=== PATIENT | female | born 1955 | race Two or more races ===

== ENCOUNTER 2018-04-01 02:17 | Inpatient (IN) | payer SELFPAY ==
[~2018-04-01] VITALS: Ht 152.4 cm; Wt 84.8 kg
[2018-04-01 02:25] VITALS: Ht 152.4 cm; Wt 84.8 kg
[2018-04-01 03:24] LABS: BASOPHIL % 0.2 % (0-2); PLATELET COUNT 184 x10^3mcL (130-400)
[2018-04-01 03:37] LABS: CALCIUM 9.1 mg/dL (8.5-10.1); CARBON DIOXIDE 28.3 mmol/L (21-32); CREATININE SERUM 1.3 mg/dL (0.6-1.0); POTASSIUM SERUM 4.3 mmol/L (3.5-5.1)
[2018-04-01 03:42] LABS: ALBUMIN 3.7 g/dL (3.4-5.0); BILIRUBIN TOTAL 0.4 mg/dL (0.20-1.00); TOTAL PROTEIN, SERUM 7.3 g/dL (6.4-8.2)
[2018-04-01 04:03] LABS: UA SPECIFIC GRAVITY 1.015 (1.005-1.035); microscopic required? YES; urine erythrocyte NEGATIVE (NEGATIVE)
[2018-04-01] MEDS ORDERED: METFORMIN HCL850 MG (09:17)
[2018-04-01 12:26] VITALS: BP 157/74
[2018-04-01 16:05] LABS: CHOLESTEROL/HDL RATIO 4.2; MAGNESIUM 1.7 mg/dL (1.8-2.4); PHOSPHOROUS 4.2 mg/dL (2.5-4.9)
[2018-04-01 16:30] LABS: T3 TOTAL 1.12 ng/mL
[2018-04-01 16:37] LABS: FREE T4 1.03 ng/dL (0.76-1.46); FREE THYROXINE INDEX 2.4 ug/dL (1.4-4.5); T4(THYROXINE) 6.7 ug/dL (4.7-13.3)
[2018-04-01 16:38] VITALS: BP 114/78
[2018-04-01 17:36] LABS: AMPHETAMINE QUAL UR NONE DETECTED (See below)
== END 2018-04-01 18:46 | disposition left against medical advice (07) | DRG 637 ==
LOC: ED 02:17 → DU 09:13
PROVIDERS: Emergency Medicine; Family Medicine
DX: E11.65 Type 2 diabetes mellitus with hyperglycemia (principal); N17.0 Acute kidney failure with tubular necrosis; E87.1 Hypo-osmolality and hyponatremia; I24.9 Acute ischemic heart disease, unspecified; E78.5 Hyperlipidemia, unspecified; G89.29 Other chronic pain; M54.5 Low back pain; E03.9 Hypothyroidism, unspecified; M79.2 Neuralgia and neuritis, unspecified; M19.90 Unspecified osteoarthritis, unspecified site; E83.42 Hypomagnesemia; K29.70 Gastritis, unspecified, without bleeding; I95.1 Orthostatic hypotension; Z79.84 Long term (current) use of oral hypoglycemic drugs
CPT/HCPCS: 82962; 83880; 84439; J1815; J2405; J7030; Q0092